=== PATIENT | male | born 1985 | race African-American/Black ===

== ENCOUNTER 2016-12-19 01:00 | Emergency (ER) ==
[2016-12-19 01:29] VITALS: BP 127/77
--- NOTE | 2016-12-19 02:03 | PROVIDER DOCUMENTATION ---
HPI-Rash/Wound/ReCheck - General Chief Complaint: Rash Stated Complaint: RASH Time Seen by Provider: 12/19/16 01:41 Source: patient Allergies/Adverse Reactions: Allergies Allergy/AdvReac Type Severity Reaction Status Date / Time No Known Allergies Allergy Verified 01/15/16 09:01 Home Medications: Home Medication List Medication Instructions Recorded Confirmed Last Taken Type Ketorolac [Toradol] 10 mg PO Q6H PRN PRN #15 tablet 01/15/16 Unknown Rx Penicillin V Potassium 500 mg PO BID #20 tablet 01/15/16 Unknown Rx - History of Present Illness-Dermatology Nature of Presenting Problem: Pt is a 31 yom who presents to ER with CC of a skin rash that is most prominent around his knees and elbows. Pt reports that he has had this rash intermittently for "a while" and wanted to be assessed to make sure it's not staff. Pt does complain of his rash itching. Location: reports: upper extremity, lower extremity Quality: reports: itchy Severity: reports: moderate Onset/Duration: reports: unsure ("a while") Timing: reports: intermittent Context/Associated Symptoms: reports: change in skin texture, rash. denies: insect bite/sting, tick bite, spider bite, unknown bite/sting, abscess, laceration, abrasion, incised wound, burn, blisters, edema, flushing, hives, lesion, pallor, tingling Identifiable cause?: No Exposure: reports: unknown cause Locality of Occurance: Home Review of Systems - Adult - REVIEW OF SYSTEMS - ADULT Constitutional: denies: chills, fever, fatique, night sweats, weight gain, weight loss Eyes: reports: no symptoms reported Ears, Nose, Mouth & Throat: reports: no symptoms reported Cardiovascular: reports: no symptoms reported Respiratory: reports: no symptoms reported Gastrointestinal: reports: no symptoms reported Genitourinary: reports: no symptoms reported Musculoskeletal: reports: no symptoms reported Integumentary: reports: itching, rash. denies: hives, hair loss, mole changes, nail changes, skin sores/ulcer, skin thickening Neurological: reports: no symptoms reported Psychiatric: reports: no symptoms reported Endocrine: reports: no symptoms reported Hematologic/Lymphatic: reports: no symptoms reported Allergic/Immunologic: reports: eczema. denies: allergic reactions, allergic rhinitis, asthma, food allergy, frequent infections, hay fever, hives, positive PPD, urticaria All Other Systems: Reviewed and Negative Past History - Adult - PAST MEDICAL HISTORY-ADULT Review of Records: reports: Nursing Assessment Review, Medications Reviewed - PRIOR SURGERIES/PROCEDURES Surgical/Procedure History: reports: hernia repair - IMMUNIZATION STATUS Childhood Immunizations: See Nurse Assessment Flu Vaccine: See Nurse Assessment Physical Exam-General - PHYSICAL EXAM-ADULT Initial Vital Signs Reviewed: Yes - CONSTITUTIONAL General Appearance: appears well, alert, mild distress. negative: no apparent distress, moderate distress, severe distress, cachetic, obese, thin, anxious, lethargic, slow to respond, obtunded, combative - NECK Neck: non-tender, full range of motion, supple. negative: limited range of motion, lymphadenopathy - RESPIRATORY Respiratory: chest non-tender, lungs clear, normal breath sounds. negative: respiratory distress, decreased breath sounds, accessory muscle use, wheezing - CARDIOVASCULAR Cardiovascular: normal peripheral pulses, regular rate, rhythm. negative: bradycardia, tachycardia, irregularly irregular - LYMPHATIC Lymphatic: no adenopathy. negative: axilla node tender, cervical node tenderness, inguinal node tender - MUSCULOSKELETAL Extremity: normal range of motion, non-tender, normal gait, other (rash on bilateral upper and lower extremeties, more pronounced behind knees and elbows) . negative: deformity, erythema, inflammation, swelling, tenderness - SKIN Integumentary: normal color, normal turgor, warm/dry, rash (rash on bilateral upper and lower extremeties, more pronounced behind knees and elbows). negative : abrasion(s), diaphoresis, ecchymosis, erythema, laceration(s), swelling, tenderness, warm - NEUROLOGIC Neurologic: grossly normal, no motor/sensory deficits - PSYCHIATRIC Psych/Mental Status: normal mood/affect, normal thought content, normal thought process, oriented x 3 Progress - PLAN OF CARE/RESULTS Progress/Plan/Lab Results: Vital Signs - 24 hr 12/19/16 01:27 Temperature 98.8 F Pulse Rate 71 Respiratory 18 Rate Blood Pressure 127/77 O2 Sat by Pulse 99 Oximetry Departure - Departure Time of Disposition Order: 02:00 DIAGNOSIS: Skin eruption Eczema Qualifiers: Eczema type: unspecified Qualified Code(s): L30.9 - Dermatitis, unspecified Disposition: HOME 01 Certified Medical Emergency: Emergent Condition: Stable Additional Instructions: Follow up with [facility]: [facility]: Dr. Gloria ED Follow Up Instructions: You have been treated by a care provider in the Emergency Department. These instructions are being provided to you so you can have an understanding of how to care for yourself upon discharge. Upon discharge from the Emergency Department, you are responsible for making arrangements for follow-up care by a physician of your choice. Take all prescribed medications as directed. Return to the Emergency Department immediately for any new or worsening symptoms. You may call the Physician Referral phone number at [phone] to obtain a list of Physicians who are taking new patients. Referrals: Senthil Dave [Primary Care Provider] - Anthony Gloria MD [STAFF PHYSICIAN] - Attestation - Scribe Verification/Attestation Scribe:: Jose Luis Mckay Acting as Scribe for:: Harvey Arnold Scribe documention review:: This chart was documented by a scribe and accurately reflects the service the provider performed and the decisions made by the provider.
== END 2016-12-19 02:19 | disposition home or self-care (01) ==
LOC: ED 01:00
DX: L30.9 Dermatitis, unspecified (principal); R21 Rash and other nonspecific skin eruption; L29.9 Pruritus, unspecified
CPT/HCPCS: 99281